=== PATIENT | male | born 2000 | race Caucasian/White ===

== ENCOUNTER 2018-10-19 23:12 | Emergency (ER) | payer MEDICAID ==
[~2018-10-19] VITALS: Ht 167.6 cm; Wt 63.6 kg
[2018-10-19 23:16] VITALS: Ht 167.6 cm; Wt 63.6 kg
[2018-10-19] MEDS ORDERED: SEROQUEL300 MG PO (23:17)
[2018-10-19] MEDS ORDERED: LITHIUM CARBON300 MG PO (23:17)
[2018-10-19] MEDS ORDERED: ACETAMINOPHEN500 M1 PO (23:36)
[2018-10-19] MEDS ORDERED: IBUPROFEN800 MG PO (23:36)
[2018-10-19] MEDS ORDERED: CYCLOBENZAPRINE10 MG PO (23:36)
[2018-10-20 01:02] VITALS: BP 120/70
== END 2018-10-20 01:05 | disposition home or self-care (01) ==
LOC: D.ER 23:12
DX: M25.531 Pain in right wrist (principal)

== ENCOUNTER 2018-10-25 20:42 | Emergency (ER) | payer MEDICAID ==
[~2018-10-25] VITALS: Ht 167.6 cm; Wt 63.6 kg
[~2018-10-25 20:42] MED LIST: ACETAMINOPHEN500 M1 PO; CYCLOBENZAPRINE10 MG PO; IBUPROFEN800 MG PO; LITHIUM CARBON300 MG PO; SEROQUEL300 MG PO
[2018-10-25 21:26] LABS: BASOPHILS 0.3 % (0-2); EOSINOPHILS 2.7 % (0-7); HEMOGLOBIN 13.6 g/dL (13.5-17.5); IMMATURE GRANULOCYTES 0.6 % (0-5); LYMPHOCYTES 16.5 % (15-50); MCH 30.6 pg (26.0-34.0); MCV 90.1 fL (80.0-100.0); MEAN PLATELET VOLUME 9.6 fL (7.4-10.4); MONOCYTES 7.4 % (2-11); NEUTROPHILS 72.5 % (40-80); PLATELET COUNT 262 10x3/uL (130-400); RBC 4.44 10x6/uL (4.20-6.10); RDW 13.2 % (11.5-14.5); WBC 15.4 10x3/uL (4.8-10.8)
[2018-10-25 21:41] LABS: APPEARANCE CLEAR (CLEAR); BILIRUBIN NEGATIVE (NEGATIVE); COLOR YELLOW (YELLOW); GLUCOSE NEGATIVE (NEGATIVE); KETONE NEGATIVE (NEGATIVE); NITRITE NEGATIVE (NEGATIVE); PROTEIN NEGATIVE (NEGATIVE); SPECIFIC GRAVITY 1.025 (1.005-1.020); UROBILINOGEN NORMAL (NORMAL)
[2018-10-25 21:42] LABS: BACTERIA FEW /hpf (NONE SEEN); RED CELLS - URINE OCC /hpf (0-5); WHITE CELLS - URINE 0-5 /hpf (0-5)
[2018-10-25 21:51] LABS: ALBUMIN 3.5 g/dL (3.4-5.0); ALKALINE PHOSPHATASE 111 U/L (46-116); ALT (SGPT) 33 U/L (10-68); BILIRUBIN - TOTAL 0.23 mg/dL (0.2-1.3); CALC OSMOLALITY 281 mosm/kg (275-300); CALCIUM 8.9 mg/dL (8.5-10.1); CARBON DIOXIDE 27.8 mmol/L (21.0-32.0); CHLORIDE - SERUM 104 mmol/L (98-107); CREATININE - SERUM 0.9 mg/dL (0.6-1.3); GLUCOSE 98 mg/dL (74-106); POTASSIUM - SERUM 3.8 mmol/L (3.5-5.1); PROTEIN - SERUM 7.1 g/dL (6.4-8.2); SODIUM 140 mmol/L (136-145); UREA NITROGEN 20 mg/dL (7-18); eGFR NON AFRICAN AMERICAN > 90 mL/min (90-120)
[2018-10-25 21:55] LABS: AMYLASE - SERUM 60 U/L (25-115); LIPASE 77 U/L (73-393)
[2018-10-25 21:58] LABS: TROPONIN-I < 0.017 ng/mL (0.000-0.060)
[2018-10-26] MEDS ORDERED: DULCOLAX STOOL100 MG PO (00:14)
== END 2018-10-26 00:35 | disposition home or self-care (01) ==
LOC: D.ER 20:42
PROVIDERS: Family Medicine
DX: R10.32 Left lower quadrant pain (principal); K59.00 Constipation, unspecified; R11.2 Nausea with vomiting, unspecified